=== PATIENT | male | born 1960 | race Caucasian/White ===

== ENCOUNTER 2018-06-11 13:41 | Emergency (ER) | payer MEDICAID ==
[~2018-06-11] VITALS: Ht 167.6 cm; Wt 80.0 kg
[2018-06-11 13:48] VITALS: BP 134/72
== END 2018-06-11 17:50 | disposition left against medical advice (07) ==
LOC: ER 13:41
DX: S61.219D Laceration without foreign body of unspecified finger without damage to nail, subsequent encounter (principal); Z53.21 Procedure and treatment not carried out due to patient leaving prior to being seen by health care provider; X58.XXXD Exposure to other specified factors, subsequent encounter

== ENCOUNTER 2018-06-18 09:39 | Emergency (ER) | payer MEDICAID, OTHER ==
[~2018-06-18] VITALS: Ht 170.2 cm; Wt 77.0 kg
[2018-06-18 09:43] VITALS: BP 126/74
== END 2018-06-18 11:21 | disposition home or self-care (01) ==
LOC: ER 09:39
DX: S61.211D Laceration without foreign body of left index finger without damage to nail, subsequent encounter (principal); S61.213D Laceration without foreign body of left middle finger without damage to nail, subsequent encounter; Z90.89 Acquired absence of other organs; X58.XXXD Exposure to other specified factors, subsequent encounter
CPT/HCPCS: 99281